=== PATIENT | male | born 1960 | race African-American/Black ===

== ENCOUNTER 2019-03-09 02:15 | Emergency (ER) | payer OTHER ==
[2019-03-09] MEDS ORDERED: Albuterol/Ipratropium 3.0-0.5 MG/3 ML Neb Soln NEB ONE (02:21)
[2019-03-09] MEDS ORDERED: Albuterol/Ipratropium 3.0-0.5 MG/3 ML Neb Soln ONE (02:21)
[2019-03-09] MEDS ORDERED: LORazepam 2 MG/ML SDV IM ONE (02:25)
[2019-03-09] MEDS ORDERED: Meperidine PF 100 MG/ML Syringe IM ONE (02:25)
[2019-03-09] MEDS: Sodium Chloride 0.9% 10 ML Syringe FLUSH PRN ×5 (02:35→11:11)
--- NOTE | 2019-03-09 02:46 | EDM.PDOC ---
ED HPI GENERAL MEDICAL PROBLEM - General Chief Complaint: Respiratory Problem Stated Complaint: SOB Time Seen by Provider: 03/09/19 02:40 Source of Information: Reports: Family History Limitations: Reports: No Limitations - History of Present Illness INITIAL COMMENTS - FREE TEXT/NARRATIVE: Chong prescott is a 58-year-old male who came in because of shortness of breath. He was discharged yesterday from the hospital at [place] where he was admitted for bleeding from the tracheostomy tube. During this hospital stay,The tube was changed,and subsequently his Coumadin was held. 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 Tonight, he complains of shortness of breath,which is progressiveand associated with a cough and chest pain. He has a history of recent diagnosis of thymoma, anemia, PTSD and anxiety, diastolic CHF, sinus tachycardia, chronic leg pain, and obesity. Back/Chest Pain Score (Numeric/FACES): 10 - Related Data Allergies Allergy/AdvReac Type Severity Reaction Status Date / Time acetaminophen [From Tylenol] Allergy Airway Verified 03/09/19 02:40 Tightness hydromorphone Allergy Airway Verified 03/09/19 02:40 Tightness morphine Allergy Airway Verified 03/09/19 02:40 Tightness oxycodone Allergy Airway Verified 03/09/19 02:40 Tightness Penicillins Allergy Airway Verified 03/09/19 02:40 Tightness Home Meds: Home Meds Gabapentin [Neurontin] 1,200 mg PO TID 03/09/19 [History] Warfarin Sodium [Coumadin] 7.5 mg PO DAILY 03/09/19 [History] ED ROS GENERAL - Review of Systems Review Of Systems: ROS reveals no pertinent complaints other than HPI. ED EXAM, GENERAL - Physical Exam Exam: See Below Exam Limited By: Respiratory Distress General Appearance: Alert, Anxious Ear Exam: Bilateral Ear: Auricle Normal, Canal Normal, TM normal Throat/Mouth: Normal Inspection Head: Atraumatic Neck: Normal Inspection, Other (Tracheostmy noted.) Respiratory/Chest: Rhonchi, Wheezing Cardiovascular: Normal Peripheral Pulses (Male) Exam: Deferred Rectal (Males) Exam: Deferred Extremities: Normal Inspection Neurological: Alert, Oriented Course - Vital Signs Last Recorded V/S: Last Vital Signs Temp 97.9 F 03/09/19 02:25 Pulse 112 H 03/09/19 06:20 Resp 26 H 03/09/19 06:20 BP 118/55 L 03/09/19 06:10 Pulse Ox 100 03/09/19 06:20 - Orders/Labs/Meds Orders: Active Orders 24 hr Category Date Time Status Patient Status Manage Transfer [TRANSFER] Routine ADT 03/09/19 04:24 Active Cardiac Monitoring [RC] CONTINUOUS Care 03/09/19 04:21 Active Height and Weight [RC] DAILY Care 03/09/19 04:20 Active Oxygen Therapy [RC] PRN Care 03/09/19 04:21 Active RT Aerosol Therapy [RC] ASDIRECTED Care 03/09/19 02:21 Active Up With Assistance [RC] ASDIRECTED Care 03/09/19 04:20 Active VTE/DVT Education [RC] Per Unit Routine Care 03/09/19 04:21 Active Vital Signs [RC] Q4H Care 03/09/19 04:21 Active Ang Chest [CT] Stat Exams 03/09/19 02:38 Taken Chest 1V Frontal [CR] Stat Exams 03/09/19 02:26 Taken TROPONIN I [CHEM] Routine Lab 03/09/19 08:00 Ordered Sodium Chloride 0.9% [Normal Saline] Med 03/09/19 04:45 Active 10 ml FLUSH ASDIRECTED Sodium Chloride 0.9% [Saline Flush] Med 03/09/19 02:35 Active 10 ml FLUSH ASDIRECTED PRN EKG 12 Lead [EK] Routine Ther 03/09/19 08:00 Ordered EKG 12 Lead [EK] Stat Ther 03/09/19 02:25 Ordered Medication Orders Sodium Chloride (Normal Saline) 10 ml FLUSH ASDIRECTED ELDER Sodium Chloride (Saline Flush) 10 ml FLUSH ASDIRECTED PRN PRN Reason: IV Use Last Admin: 03/09/19 05:51 Dose: 10 ml Admin: 03/09/19 02:35 Dose: 10 ml Labs: Laboratory Tests 03/09/19 03/09/19 03/09/19 Range/Units 02:30 02:30 02:30 WBC 10.6 (4.5-12.0) X10-3/uL RBC 4.03 L (4.30-5.75) x10(6)uL Hgb 9.4 L (13.5-17.8) g/dL Hct 28.9 L (30.0-51.3) % MCV 71.8 L (80-96) fL MCH 23.4 L (27.7-33.6) pg MCHC 32.6 (32.2-35.4) g/dL RDW 16.8 H (11.5-15.5) % Plt Count 383 H (125-369) X10(3)uL MPV 7.4 (7.4-10.4) fL Neut % (Auto) 57.9 (46-82) % Lymph % (Auto) 24.6 (13-37) % Perkins % (Auto) 13.5 H (4-12) % Eos % (Auto) 3 (1.0-5.0) % Baso % (Auto) 1 (0-2) % Neut # (Auto) 6.2 (1.6-8.3) # Lymph # (Auto) 2.6 (0.6-5.0) # Perkins # (Auto) 1.4 H (0.0-1.3) # Eos # (Auto) 0.3 (0.0-0.8) # Baso # (Auto) 0.1 (0.0-0.2) # PT (8.7-11.1) INR (0.89-1.13) D-Dimer, Quantitative 1.64 H (0.0-0.59) mg/LFEU Sodium 143 (135-145) mmol/L Potassium 4.0 (3.5-5.3) mmol/L Chloride 106 (100-110) mmol/L Carbon Dioxide 24 (21-32) mmol/L BUN 11 (7-18) mg/dL Creatinine 0.8 (0.70-1.30) mg/dL Est Cr Clr Drug Dosing TNP Estimated GFR (MDRD) > 60 (>60) BUN/Creatinine Ratio 13.8 (9-20) Glucose 125 H (80-116) mg/dL Calcium 9.0 (8.6-10.2) mg/dL Total Bilirubin 0.3 (0.1-1.3) mg/dL AST 13 (5-25) IU/L ALT 24 (12-36) U/L Alkaline Phosphatase 103 (56-112) IU/L Troponin I (<0.017-0.056) ng/mL Total Protein 7.2 (6.0-8.0) g/dL Albumin 3.0 L (3.5-5.2) g/dL Globulin 4.2 g/dL Albumin/Globulin Ratio 0.7 TSH, Ultra Sensitive (0.36-3.74) IU/mL 03/09/19 03/09/19 03/09/19 Range/Units 02:30 02:30 02:30 WBC (4.5-12.0) X10-3/uL RBC (4.30-5.75) x10(6)uL Hgb (13.5-17.8) g/dL Hct (30.0-51.3) % MCV (80-96) fL MCH (27.7-33.6) pg MCHC (32.2-35.4) g/dL RDW (11.5-15.5) % Plt Count (125-369) X10(3)uL MPV (7.4-10.4) fL Neut % (Auto) (46-82) % Lymph % (Auto) (13-37) % Perkins % (Auto) (4-12) % Eos % (Auto) (1.0-5.0) % Baso % (Auto) (0-2) % Neut # (Auto) (1.6-8.3) # Lymph # (Auto) (0.6-5.0) # Perkins # (Auto) (0.0-1.3) # Eos # (Auto) (0.0-0.8) # Baso # (Auto) (0.0-0.2) # PT 12.6 H (8.7-11.1) INR 1.30 H (0.89-1.13) D-Dimer, Quantitative (0.0-0.59) mg/LFEU Sodium (135-145) mmol/L Potassium (3.5-5.3) mmol/L Chloride (100-110) mmol/L Carbon Dioxide (21-32) mmol/L BUN (7-18) mg/dL Creatinine (0.70-1.30) mg/dL Est Cr Clr Drug Dosing Estimated GFR (MDRD) (>60) BUN/Creatinine Ratio (9-20) Glucose (80-116) mg/dL Calcium (8.6-10.2) mg/dL Total Bilirubin (0.1-1.3) mg/dL AST (5-25) IU/L ALT (12-36) U/L Alkaline Phosphatase (56-112) IU/L Troponin I < 0.017 L (<0.017-0.056) ng/mL Total Protein (6.0-8.0) g/dL Albumin (3.5-5.2) g/dL Globulin g/dL Albumin/Globulin Ratio TSH, Ultra Sensitive < 0.01 L (0.36-3.74) IU/mL Meds: Medications Generic Name Dose Route Start Last Admin Trade Name Freq PRN Reason Stop Dose Admin Sodium Chloride 10 ml 03/09/19 04:45 Normal Saline FLUSH ASDIRECTED ELDER Sodium Chloride 10 ml 03/09/19 02:35 03/09/19 05:51 Saline Flush FLUSH 10 ml ASDIRECTED PRN Administration IV Use Discontinued Medications Generic Name Dose Route Start Last Admin Trade Name Freq PRN Reason Stop Dose Admin Albuterol/Ipratropium Confirm 03/09/19 02:21 03/09/19 02:37 Duoneb 3.0-0.5 Mg/3 Ml Administered 03/09/19 02:22 Not Given Dose 3 ml .ROUTE .STK-MED ONE Albuterol/Ipratropium 3 ml 03/09/19 02:21 03/09/19 02:21 Duoneb 3.0-0.5 Mg/3 Ml NEB 03/09/19 02:22 3 ml ONETIME ONE Administration Al Hydroxide/Mg Hydroxide 15 0 ml 03/09/19 05:31 03/09/19 05:43 ml/ Lidocaine HCl 15 ml PO 03/09/19 05:32 30 ml ONETIME ONE Administration Fentanyl 100 mcg 03/09/19 05:31 03/09/19 05:48 Sublimaze IVPUSH 03/09/19 05:32 100 mcg ONETIME ONE Administration Iopamidol 100 ml 03/09/19 02:49 03/09/19 03:20 Isovue-370 (76%) IV 03/09/19 02:50 83 ml . DIRECTED ONE Administration Lorazepam 1 mg 03/09/19 02:25 03/09/19 02:34 Ativan IM 03/09/19 02:26 1 mg ONETIME ONE Administration Meperidine HCl 100 mg 03/09/19 02:25 03/09/19 02:31 Demerol IM 03/09/19 02:26 100 mg ONETIME ONE Administration Meperidine HCl 50 mg 03/09/19 04:27 03/09/19 04:32 Demerol IVPUSH 03/09/19 04:28 50 mg ONETIME ONE Administration Meperidine HCl Confirm 03/09/19 04:29 03/09/19 04:38 Demerol Administered 03/09/19 04:30 Not Given Dose 50 mg .ROUTE .STK-MED ONE Departure - Departure Time of Disposition: 08:03 Disposition: Still A Patient 30 Condition: Fair Clinical Impression: Respiratory distress - Discharge Information Referrals: PCP,None [Primary Care Provider] - Forms: ED Department Discharge - Problem List & Annotations (1) Respiratory distress SNOMED Code(s): 445890149 Code(s): R06.03 - ACUTE RESPIRATORY DISTRESS Status: Acute Current Visit : Yes (2) Anemia SNOMED Code(s): 798292950 Code(s): D64.9 - ANEMIA, UNSPECIFIED Status: Chronic Current Visit: Yes Qualifiers: Anemia type: unspecified type Qualified Code(s): D64.9 - Anemia, unspecified (3) Thymoma SNOMED Code(s): 748194011 Code(s): D15.0 - BENIGN NEOPLASM OF THYMUS Status: Acute Current Visit: Yes (4) Tracheostomy care SNOMED Code(s): 968245422 Code(s): Z43.0 - ENCOUNTER FOR ATTENTION TO TRACHEOSTOMY Status: Acute Current Visit: Yes (5) Tracheostomy in place SNOMED Code(s): 839687510 Code(s): Z93.0 - TRACHEOSTOMY STATUS Status: Chronic Current Visit: Yes (6) Obesity SNOMED Code(s): 323603379, 385478795 Code(s): E66.9 - OBESITY, UNSPECIFIED Status: Acute Current Visit: Yes Qualifiers: Obesity type: due to excess calories (7) Leg pain SNOMED Code(s): 55766445 Code(s): M79.606 - PAIN IN LEG, UNSPECIFIED Status: Acute Current Visit: Yes (8) History of pulmonary embolism SNOMED Code(s): 490737745 Code(s): Z86.711 - PERSONAL HISTORY OF PULMONARY EMBOLISM Status: Acute Current Visit: Yes (9) Anxiety SNOMED Code(s): 63109500 Code(s): F41.9 - ANXIETY DISORDER, UNSPECIFIED Status: Acute Current Visit: Yes (10) PTSD (post-traumatic stress disorder) SNOMED Code(s): 47234577 Code(s): F43.10 - POST-TRAUMATIC STRESS DISORDER, UNSPECIFIED Status: Acute Current Visit: Yes (11) Atypical chest pain SNOMED Code(s): 022858089 Code(s): R07.89 - OTHER CHEST PAIN Status: Acute Current Visit: Yes - Problem List Review Problem List Initiated/Reviewed/Updated: Yes - My Orders Last 24 Hours: My Active Orders 03/09/19 02:21 RT Aerosol Therapy [RC] ASDIRECTED 03/09/19 02:25 EKG 12 Lead [EK] Stat 03/09/19 02:26 Chest 1V Frontal [CR] Stat 03/09/19 02:35 Sodium Chloride 0.9% [Saline Flush] 10 ml FLUSH ASDIRECTED PRN 03/09/19 02:38 Ang Chest [CT] Stat 03/09/19 04:20 Height and Weight [RC] DAILY Up With Assistance [RC] ASDIRECTED 03/09/19 04:21 Cardiac Monitoring [RC] CONTINUOUS Oxygen Therapy [RC] PRN VTE/DVT Education [RC] Per Unit Routine Vital Signs [RC] Q4H 03/09/19 04:24 Patient Status Manage Transfer [TRANSFER] Routine 03/09/19 04:45 Sodium Chloride 0.9% [Normal Saline] 10 ml FLUSH ASDIRECTED 03/09/19 08:00 TROPONIN I [CHEM] Routine EKG 12 Lead [EK] Routine - Assessment/Plan Last 24 Hours: My Active Orders 03/09/19 02:21 RT Aerosol Therapy [RC] ASDIRECTED 03/09/19 02:25 EKG 12 Lead [EK] Stat 03/09/19 02:26 Chest 1V Frontal [CR] Stat 03/09/19 02:35 Sodium Chloride 0.9% [Saline Flush] 10 ml FLUSH ASDIRECTED PRN 03/09/19 02:38 Ang Chest [CT] Stat 03/09/19 04:20 Height and Weight [RC] DAILY Up With Assistance [RC] ASDIRECTED 03/09/19 04:21 Cardiac Monitoring [RC] CONTINUOUS Oxygen Therapy [RC] PRN VTE/DVT Education [RC] Per Unit Routine Vital Signs [RC] Q4H 03/09/19 04:24 Patient Status Manage Transfer [TRANSFER] Routine 03/09/19 04:45 Sodium Chloride 0.9% [Normal Saline] 10 ml FLUSH ASDIRECTED 03/09/19 08:00 TROPONIN I [CHEM] Routine EKG 12 Lead [EK] Routine Assessment:: CT showed no large PE. Still has chest pain,radiating to the back. Admit for pain control,Repeat Cardiac enzymes. Plan: We gave him Demerol and Lorazepam,he improved.Will keep in the ED for a few hours and repeat cardiac enzymes. I attempted to admit but due to staffing,I was not able to. [facility] felt we can handle rule out locally,I spoke with the hospitalist
[2019-03-09] MEDS ORDERED: Iopamidol 755 Mg/ML 100 ML Bottle IV ONE (02:49)
[2019-03-09] MEDS ORDERED: Meperidine PF 50 MG/ML Syringe IVPUSH ONE (04:27)
[2019-03-09] MEDS ORDERED: Meperidine PF 50 MG/ML Syringe ONE (04:29)
[2019-03-09] MEDS ORDERED: Sodium Chloride 0.9% 10 ML SDV FLUSH SCH (04:45)
[2019-03-09] MEDS ORDERED: Alum Hydroxide/Mag Hydroxide 15 ML, Lidocaine 2% 15 ML PO ONE ×2 (05:31)
[2019-03-09] MEDS ORDERED: fentaNYL 100 MCG/2 ML SDV IVPUSH ONE ×2 (05:31→08:11)
[2019-03-09] MEDS ORDERED: Albuterol 0.083% 2.5 MG/3 ML Neb Soln NEB ONE (08:12)
[2019-03-09] MEDS ORDERED: Ondansetron 4 MG/2 ML SDV IVPUSH ONE ×2 (08:40→08:42)
[2019-03-09] MEDS ORDERED: LORazepam 2 MG/ML SDV IVPUSH ONE (10:09)
[2019-03-09] MEDS ORDERED: Metoprolol Tartrate 5 MG in Sodium Chloride 0.9% 50 ML IV ONE (10:09)
[2019-03-09] MEDS ORDERED: Metoprolol Tartrate 5 MG/5 ML SDV IVPUSH ONE (11:00)
== END 2019-03-09 11:30 | disposition still patient (30) ==
LOC: FB.ED 02:15
DX: R06.03 Acute respiratory distress (principal); R07.89 Other chest pain; E05.90 Thyrotoxicosis, unspecified without thyrotoxic crisis or storm; Z88.8 Allergy status to other drugs, medicaments and biological substances; Z88.5 Allergy status to narcotic agent; Z88.0 Allergy status to penicillin; Z79.01 Long term (current) use of anticoagulants; Z79.899 Other long term (current) drug therapy; F43.10 Post-traumatic stress disorder, unspecified; Z86.711 Personal history of pulmonary embolism
CPT/HCPCS: 36410; 36415; 71045; 71275; 80053; 84443; 84484; 85025; 85379; 85610; 93005; 94640; 96372; 96374; 96375; 96376; 99285; A9270; J2060; J2175; J2405; J3010; J3490; Q9967; J7620-GY